=== PATIENT | male | born 1990 | race Caucasian/White ===

== ENCOUNTER 2019-09-21 14:08 | Inpatient (IN) | payer OTHER ==
[2019-09-21] VITALS (8 sets, daily range): BP systolic 123–147; BP diastolic 61–88
[~2019-09-21] VITALS: Ht 167.6 cm; Wt 55.3 kg
[2019-09-21] MEDS ORDERED: HYDROXYZINE HCL25 M2 PO (14:18)
[2019-09-21 14:43] LABS: HEMOGLOBIN 18.1 gm/dL (14.0-18.0); MCH 30.3 pg (26.0-34.0); MCHC 33.4 g/dL (28.0-37.0); MCV 90.5 fL (80.0-100.0); RBC 5.96 mil/uL (4.50-6.00); RDW 13.6 % (10.5-14.5); WBC 30.8 thou/uL (4.0-11.0)
[2019-09-21 15:02] LABS: ALBUMIN 4.9 g/dL (3.4-5.0); CALCIUM 8.9 mg/dL (8.5-10.1); CREATININE 1.6 mg/dL (0.7-1.3); POTASSIUM 4.9 mmol/L (3.5-5.1); TOTAL BILIRUBIN 0.9 mg/dL (0.2-1.0); TOTAL PROTEIN 8.4 g/dL (6.4-8.2)
[2019-09-21 15:26] LABS: BE(vivo) -26.5 mmol/L (-2 to +3); HCO3 2.5 mmol/L (22.0-26.0); PCO2 10.3 mmHg (35.0-45.0); PO2 131.8 mmHg (80.0-100.0); pH 7.001 (7.360-7.450)
[2019-09-21 15:31] LABS: ABSOLUTE NEUTROPHILS 27.1 thou/uL (1.4-8.2)
[2019-09-21 15:32] LABS: ANISOCYTOSIS 1+; PLATELET COUNT 265 thou/uL (150-400)
[2019-09-21 16:43] LABS: ALBUMIN 4.9 g/dL (3.4-5.0); CALCIUM 8.8 mg/dL (8.5-10.1); CREATININE 1.5 mg/dL (0.7-1.3); MAGNESIUM 2.3 mg/dL (1.8-2.4); PHOSPHORUS 6.3 mg/dL (2.5-4.9); POTASSIUM 5.4 mmol/L (3.5-5.1)
--- NOTE | 2019-09-21 21:09 | NUR ---
Pt admitted from ED, he presents as anxious, restless, tachypneic, (especially when staff is in the room). ABG shows metabolic acidosis with a GAP of 34. Monitor reads ST 120's to 140's, BP is 130's/ 80's, +pulses, no edema. LCTA on room air sats are 96% and above. Abd is flat, bowel sounds are hypoactive and due to repeated emesis, he is NPO. Pt is voiding clear yellow urine to urinal. He has received a prn dose of ativan, will monitor for efficacy. Pt is on DKA protocol, and treatment will be adjusted per lab results. Will continue to monitor.
[2019-09-22] VITALS (24 sets, daily range): BP systolic 93–128; BP diastolic 38–82
[2019-09-22 01:24] LABS: ALBUMIN 3.5 g/dL (3.4-5.0); CALCIUM 7.5 mg/dL (8.5-10.1); CREATININE 1.2 mg/dL (0.7-1.3); PHOSPHORUS 1.2 mg/dL (2.5-4.9)
[2019-09-22 01:35] LABS: POTASSIUM 3.6 mmol/L (3.5-5.1)
[2019-09-22 04:06] LABS: GLYCOHEMOGLOBIN (HGB A1C) 11.3 % (4.8-5.6)
--- NOTE | 2019-09-22 06:31 | NUR ---
Pt was noted to be resting with his eyes closed through the night, his vitals are much improved, with a heart rate of 98-105 bpm. He is currently under 200 db/ml on an insulin drip at 6 units/hour, and maintenance fluids are D5 1/2 NS with 20mEq of KCl at 150 ml/hr. Pt voided 1050 ml's of clear yellow urine. The bed is in the low/locked position, the siderails are up x 3, the call light is within reach, pt has improved from admit.
[2019-09-22 08:44] LABS: HEMATOCRIT 45.1 % (42.0-52.0); MCH 29.8 pg (26.0-34.0); MCHC 33.1 g/dL (28.0-37.0); MCV 90.2 fL (80.0-100.0); PLATELET COUNT 195 thou/uL (150-400); RDW 13.3 % (10.5-14.5); WBC 21.8 thou/uL (4.0-11.0)
[2019-09-22 08:47] LABS: HEMOGLOBIN 14.9 gm/dL (14.0-18.0)
--- NOTE | 2019-09-22 08:50 | EKG ---
[facility] [place] [address] ELECTROCARDIOGRAM REPORT Name: LACEY ZAMAN Room #: 248-P ADM IN M.R.#: [id number] Admission: 09/21/19 Attend Phys: Donte Zelaya MD Discharge: Date of : 89 Report #: [id number] THIS REPORT FOR: cc: FAM - No family physician/PCP FAM - No family physician/PCP Stephan Morgan MD [facility] THIS REPORT FOR: //name// [facility] ED Test Date: 2019-09-21 Test Time: 14:19:34 Pat Name: LACEY ZAMAN Department: Room: 248 Gender: M Business Process Expert: [facility] 1990 Requested By: Valdo Matute Order Number: [id number] MD: Stephan Morgan Measurements Intervals [place] Rate: 124 P: 77 NH: 126 QRS: 10 QRSD: 108 T: 55 QT: 357 QTc: 513 Interpretive Statements Sinus tachycardia LAE, consider biatrial enlargement Prolonged QT interval No previous ECG available for comparison Electronically Signed On 09-22-2019 8:49:44 CDT by Stephan Morgan [email or web address] <ELECTRONICALLY SIGNED> By: Stephan Morgan MD, FAC 09/22/19 0849 [id number] 1419 Stephan Morgan MD, [facility] /EPI
[2019-09-22 09:28] LABS: ABSOLUTE NEUTROPHILS 17.7 thou/uL (1.4-8.2); PLATELET ESTIMATE NORMAL
[2019-09-22 09:31] LABS: ALBUMIN 3.2 g/dL (3.4-5.0); ANION GAP 12 mmol/L (7-16); BUN 9 mg/dL (7-18); CALCIUM 8.1 mg/dL (8.5-10.1); CHLORIDE 111 mmol/L (98-107); CHOLESTEROL 130 mg/dL (<200); CO2 14 mmol/L (21-32); CREATININE 1.1 mg/dL (0.7-1.3); GLUCOSE 126 mg/dL (74-106); HDL CHOLESTEROL 35 mg/dL (>40); LDL CHOLESTEROL 83 mg/dL (<100); MAGNESIUM 2.2 mg/dL (1.8-2.4); PHOSPHORUS 0.8 mg/dL (2.5-4.9); POTASSIUM 3.2 mmol/L (3.5-5.1); SGOT 9 U/L (15-37); SGPT 13 U/L (30-65); SODIUM 137 mmol/L (136-145); TC:HDL 3.7 Ratio (Not establshd); TOTAL BILIRUBIN 1.4 mg/dL (0.2-1.0); TOTAL PROTEIN 5.9 g/dL (6.4-8.2); TRIGLYCERIDE 60 mg/dL (<150); VLDL 12 mg/dL (<40)
--- NOTE | 2019-09-22 11:22 | NUR ---
patient on insulin gtt. patient's blood glucose 68. stopped insulin gtt. notified dr guzman. gave orange juice and janell crackers per hypoglycemia protocol.
[2019-09-22 11:59] LABS: BE(vivo) -13.6 mmol/L (-2 to +3); HCO3 11.4 mmol/L (22.0-26.0); PCO2 25.6 mmHg (35.0-45.0); PO2 98.4 mmHg (80.0-100.0); sO2 96.8 % (92.0-98.0)
[2019-09-22 12:01] LABS: pH 7.267 (7.360-7.450)
[2019-09-22 14:10] LABS: ALBUMIN 3.3 g/dL (3.4-5.0); CALCIUM 7.6 mg/dL (8.5-10.1); CREATININE 1.1 mg/dL (0.7-1.3); PHOSPHORUS 1.1 mg/dL (2.5-4.9); POTASSIUM 3.3 mmol/L (3.5-5.1)
--- NOTE | 2019-09-22 16:30 | NUR ---
chart review, cm consulted. cm visited with pt, a & o x 3 and able to make his needs know. cm provided pt with safe net packet ie [facility] for getting set up with endo for dm and pcp for cont care or [facility]. pt reported "live with parent, have not worked in months. no insurance. no longer driving rt lost licences, independent when feeling ok, hope can be home before the 4th"/alin.
[2019-09-22 18:34] LABS: ALBUMIN 3.3 g/dL (3.4-5.0); CALCIUM 7.8 mg/dL (8.5-10.1); CREATININE 0.9 mg/dL (0.7-1.3); PHOSPHORUS 0.6 mg/dL (2.5-4.9); POTASSIUM 3.3 mmol/L (3.5-5.1)
[2019-09-23] VITALS (14 sets, daily range): BP systolic 99–128; BP diastolic 54–85
[2019-09-23 05:39] LABS: ABSOLUTE NEUTROPHILS 4.4 thou/uL (1.4-8.2); BASOPHILS 0.3 % (0.0-2.0); EOSINOPHILS 1.4 % (0.0-3.0); HEMATOCRIT 37.6 % (42.0-52.0); LYMPHOCYTES 21.1 % (24.0-44.0); MCH 30.3 pg (26.0-34.0); MCHC 34.6 g/dL (28.0-37.0); MCV 87.6 fL (80.0-100.0); MONOCYTES 8.5 % (1.0-8.0); PLATELET COUNT 126 thou/uL (150-400); POLYS 68.7 % (36.0-66.0); RDW 13.8 % (10.5-14.5)
[2019-09-23 05:43] LABS: WBC 6.4 thou/uL (4.0-11.0)
--- NOTE | 2019-09-23 05:50 | NUR ---
ASSUMED PT CARE AT 1900. PT IS ALERT AND ORIENTED. NO SIGN OF DISTRESS NOTED IN PT. DENIES ANY PAIN. PT IS LAYING IN BED. RESTING COMFORTABLY. BLOOD SUGAR CONTROLLED. INSULIN DRIP STOPPED PER ENDOCRINOLOGY. FALL PRECAUTION IN PLACE. ASSESSMENT COMPLETED AND DOCUMENTED. SCHEDULED MEDS ADMINISTERED TO PT. TOLERATED PO INTAKE. CONTINUE TO MONITOR PT. NO EVENTS OVERNIGHT. CONTINUE TO MONITOR. DENIES ANY NEEDS AT THIS TIME
[2019-09-23 06:07] LABS: ALBUMIN 2.7 g/dL (3.4-5.0); CALCIUM 7.8 mg/dL (8.5-10.1); CREATININE 0.9 mg/dL (0.7-1.3); POTASSIUM 3.6 mmol/L (3.5-5.1); TOTAL BILIRUBIN 1.5 mg/dL (0.2-1.0); TOTAL PROTEIN 5.2 g/dL (6.4-8.2)
--- NOTE | 2019-09-23 10:02 | NUR ---
ASSUMED CARE AT 0700, ASSESSMENT AND VITAL SIGNS COMPLETED PER ICU PROTOCOL. DR. GRANADOS ROUNDED THIS AM. PHOSPHORUS LEVEL FROM YESTERDAY BROUGHT TO HIS ATTENTION. DR. GRANADOS VOICED THAT HE WOULD PLACE ORDERS TO REDRAW. PLAN OF CARE DISCUSSED, RN WILL CONTINUE TO MONITOR. PT VISITOR PRESENT AT BEDSIDE.
[2019-09-23] MEDS ORDERED: BUSPIRONE HCL5 MG PO ×3 (11:41→16:42)
[2019-09-23] MEDS ORDERED: HUMALOG100 UNIT/1 SUBQ ×3 (11:41→16:42)
[2019-09-23] MEDS ORDERED: ACETAMINOPHEN325 M1 PO (11:41)
[2019-09-23] MEDS ORDERED: K-PHOS NEUTRAL250 MG PO ×3 (11:41→16:42)
[2019-09-23] MEDS ORDERED: IBUPROFEN 200200 M1 PO (11:41)
[2019-09-23] MEDS ORDERED: TRAZODONE HCL100 MG PO ×3 (11:41→16:42)
[2019-09-23] MEDS ORDERED: LANTUS SUBQ ×3 (11:41→16:42)
--- NOTE | 2019-09-23 13:13 | HC ---
[facility] [place] [address] CONSULTATION Name: LACEY ZAMAN Room #: 248- ADM IN M.R.#: [id number] Admission: 09/21/19 Attend Phys: Donte Zelaya MD Discharge: Date of : 89 Report #: [id number] THIS REPORT FOR: cc: ALEXIS Mina family physician/PCP ALEXIS Mina family physician/PCP Pham Browning MD ~ CC: Pham Browning [facility] physician/PCP Ida Zelaya DATE OF SERVICE: 09/22/2019 ENDOCRINE CONSULTATION NOTE CONSULTING PHYSICIAN: Dr. Zelaya. REASON FOR CONSULTATION: DKA, new onset type 1 diabetes mellitus. HISTORY OF PRESENT ILLNESS: This is a 29-year-old male patient whose medical background is rather unremarkable other than for possible anxiety, who presented to the ER with complaints of progressive shortness of breath, fatigue, nausea, vomiting. The patient describes that his difficulties with recurrent vomiting had started 4 months ago following the loss of his grandmother. He has lost at least 20 pounds of his body weight unintentionally. He describes polyuria and excessive thirst. On arrival to the ER, the patient was found to have severe hyperglycemia and metabolic changes consistent with DKA. He was subsequently admitted for further management and monitoring. The patient does not have any prior noted history of diabetes mellitus. REVIEW OF SYSTEMS: CONSTITUTIONAL: Fatigue, tiredness, progressive unintentional weight loss of 20 pounds as noted above. No fever or chills. HEENT: Negative for sore throat, sinus pain, ear drainage. PULMONARY: Occasional issues with shortness of breath, intermittent cough, but no hemoptysis. CARDIAC: Palpitations, dizziness, lightheadedness, chest discomfort. No syncope. GASTROINTESTINAL: Intractable nausea, vomiting, abdominal discomfort. No hematemesis. NEUROLOGY: Negative for loss of consciousness, seizures, but noted for some headaches. DERMATOLOGY: Negative for rash, discoloration, ulceration or other major [address] [address] CONSULTATION Name: LACEY ZAMAN Room #: [facility]- ADM IN M.R.#: [id number] Admission: 09/21/19 Attend Phys: Donte Zelaya MD Discharge: Date of : 89 Report #: [id number] abnormalities. Otherwise, review of systems is noncontributory other than those mentioned in HPI. PAST MEDICAL HISTORY: Unremarkable. 1. The patient believes that he might have anxiety, but he has never been formally diagnosed. He does take hydroxyzine on his own at 25 mg q. 8 hours p.r.n. 2. GERD. OUTPATIENT MEDICATIONS: 1. Hydroxyzine 25 mg q. 8 hours p.r.n. 2. Omeprazole. ALLERGIES: No known drug allergies. FAMILY HISTORY: Noncontributory. SOCIAL HISTORY: The patient is a current smoker. He is single. He used to work at [employer], but was recently laid off. PHYSICAL EXAMINATION: GENERAL: Young male patient who appears lethargic, tired, but not in acute pain or distress. VITAL SIGNS: Blood pressure is 100/67 mmHg, heart rate is 105 beats per minute, respirations 20 per minute, temperature 36.9 degrees. HEENT: Anicteric sclerae. Intact extraocular motions. CONSTITUTIONAL: He is sitting upright in bed, appears lethargic, but not in apparent pain or distress. NECK: Supple without JVD, carotid bruits or lymphadenopathy. I do not appreciate thyromegaly. CHEST: Clear to auscultation with good air entry bilaterally. HEART: Regular rate and rhythm without murmurs or gallops. ABDOMEN: Soft, lax. No guarding. Mild discomfort to deep palpation. Active bowel sounds. EXTREMITIES: Lower extremity exam is negative for edema. NEUROLOGIC: Awake, alert and oriented to time, place and person. The rest of his exam is nonfocal. PSYCHIATRIC: Pleasant, interactive. Normal mood and affect. Normal thought process. LABORATORY RESULTS: Blood glucose on arrival yesterday was 419. It has been maintained in normal glycemic range essentially since midnight on IV insulin therapy. Sodium 137; potassium 3.2; chloride 111; CO2 of 14; anion gap on arrival was 34 that is currently at 12; BUN 9; creatinine 1.1. AST 9, lipase 61, total bilirubin 1.4, calcium 8.1, phosphorus 0.8, magnesium 2.2, alkaline [address] [address] CONSULTATION Name: LACEY ZAMAN Room #: 248-P [facility] IN M.R.#: [id number] Admission: 09/21/19 Attend Phys: oDnte Zelaya MD Discharge: Date of : 89 Report #: [id number] phosphatase 51, ALT 13, total protein 5.9, albumin 3.2. EGFR 80, lactic acid 1.4. Total cholesterol 130, triglycerides 60, HDL 35, LDL 83. Free T4 1.2. White blood count 21.8, hemoglobin 14.9, hematocrit 45.1, platelets 195. TSH 1.129. Hemoglobin A1c 11.3%. ASSESSMENT AND PLAN: 1. Diabetic ketoacidosis. The patient's presentation from the clinical standpoint, laboratory data is consistent with diabetic ketoacidosis. The patient was treated appropriately with intravenous fluid resuscitation and intravenous insulin therapy. The patient's henriquez metabolic changes have reversed since then as his anion gap is now closed. He has maintained blood glucose values in target for the past 12 hours with intravenous insulin therapy, running an average of 6 units per hour. Given this stability, the patient will be transitioned to subcutaneous insulin therapy. 2. Type 1 diabetes mellitus. The patient has a definitive diagnosis of diabetes mellitus at this point, given his presentation. I believe that he is more likely to be a type 1 diabetic than type 2 given the events surrounding his presentation, his age, his body mass outlook. I will order the serology workup needed to confirm this outlook. The patient was counseled about this outlook and I explained that insulin therapy will be maintained during this hospital stay and on discharge as well. Given the above noted insulin needs recorded in his intravenous insulin therapy, the patient will be converted to a combination of Lantus insulin 45 units daily, Humalog insulin 15 units t.i.d. a.c., in addition to Humalog supplemental scale support with low intensity. Blood glucose monitoring will commence a.c. and at bedtime and further adjustments will be made accordingly. I stressed the importance of achieving and maintaining adequate glycemic control to avoid diabetic complications and I stressed the need for periodic followup. 3. Hypocalcemia. This is mild and normal when correcting for hypoalbuminemia, which I believe is a result of his cachexia over the past 4 months. I certainly appreciate this consultation by Dr. Zelaya. <ELECTRONICALLY SIGNED> By: Pham Browning MD 09/23/19 1313 1129 1240 MD Michael Baldwinnt
== END 2019-09-23 13:46 | disposition home or self-care (01) | DRG 638 ==
LOC: ER 14:08 → EROBS 16:24 → ICU 16:24
PROVIDERS: Emergency Medicine; ADMIT Internal Medicine; ATTEND Internal Medicine
DX: E10.10 Type 1 diabetes mellitus with ketoacidosis without coma (principal); E87.2 Acidosis; N17.9 Acute kidney failure, unspecified; K21.9 Gastro-esophageal reflux disease without esophagitis; F17.210 Nicotine dependence, cigarettes, uncomplicated; D72.829 Elevated white blood cell count, unspecified; E83.51 Hypocalcemia; F41.1 Generalized anxiety disorder; Z20.828 Contact with and (suspected) exposure to other viral communicable diseases; Z82.49 Family history of ischemic heart disease and other diseases of the circulatory system; Z79.899 Other long term (current) drug therapy
CPT/HCPCS: 10078